=== PATIENT | male | born 1970 | race Caucasian/White ===

== ENCOUNTER 2020-08-27 13:06 | Emergency (ER) | payer BC ==
[~2020-08-27] VITALS: Ht 193 cm; Wt 113.4 kg
== END 2020-08-27 19:43 | disposition home or self-care (01) ==
LOC: ER 13:06
DX: S63.125A Dislocation of interphalangeal joint of left thumb, initial encounter (principal); W16.112A Fall into natural body of water striking water surface causing other injury, initial encounter; Y93.89 Activity, other specified; Y92.821 Forest as the place of occurrence of the external cause; Y99.8 Other external cause status